=== PATIENT | male | born 1960 | race African-American/Black ===

== ENCOUNTER → 2017-01-21 | Outpatient (CLI) | payer OTHER ==
[~2017-01-21] MED LIST: AMLO5TAB2 PO; AMMO225L5 TP; CYCL10TA2 PO; FERR-26 PO; FLUT9.9S NS; HYDR-2758 PO; HYDR12.53 PO; IBUP-1027 PO; LORA10TA68 PO; LOSA25TA4 PO; NAPR500T4 PO; TRAM50TA PO; TRIA15CR3 TP; ZOLP10TA4 PO
[2017-01-21 09:22] LABS: BASO % 1 % (0-3); EOS % 2 % (0-3); HEMATOCRIT 46.2 % (39.0-53.0); HEMOGLOBIN 15.4 g/dL (13.0-17.5); LYMPH # 1.7 x10^3/uL (1.0-4.8); LYMPH % 32 % (24-48); MEAN CORPUSCULAR HEMOGLOBIN 30 pg (25-35); MEAN CORPUSCULAR HGB CONC 33 g/dL (31-37); MEAN CORPUSCULAR VOLUME 90 fL (79-100); MONO % 8 % (0-9); NEUT % 58 % (31-73); PLATELET COUNT 245 x10^3/uL (140-400); RED BLOOD COUNT 5.15 x10^6/uL (4.30-5.70); RED CELL DISTRIBUTION WIDTH 13.6 % (11.5-14.5); WHITE BLOOD COUNT 5.3 x10^3/uL (4.0-11.0)
[2017-01-21 09:50] LABS: CALCIUM 9.7 mg/dL (8.5-10.1); GFR 93.2; POTASSIUM 4.2 mmol/L (3.5-5.1)
[2017-01-21 10:22] LABS: INR 1.1 (0.8-1.1); PROTHROMBIN TIME PATIENT 13.2 SEC (11.7-14.0)
[2017-01-21 11:18] LABS: BILIRUBIN,URINE NEGATIVE (NEG); GLUCOSE,URINE NEGATIVE (NEG); NITRITE,URINE NEGATIVE (NEG); PROTEIN,URINE NEGATIVE (NEG-TRACE); UROBILINOGEN,URINE 0.2 mg/dL (0.2 mg/dL)
[2017-01-21 11:19] LABS: BACTERIA,URINE 0 /HPF (0-FEW); RBC,URINE 0 /HPF (0-2); WBC,URINE 0 /HPF (0-4)
--- NOTE | 2017-01-21 13:26 | EKG ---
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
--- NOTE | 2017-01-21 13:46 | RAD ---
Indication preop. Anticipated knee replacement. Frontal and lateral views of the chest were obtained. No prior imaging of the chest is available. The level of inspiratory effort is not optimal. There is no consolidated pneumonia. Heart size is normal given the level of inspiratory effort. There is no acute or focal infiltrate seen. Significant pleural fluid is not present. There is no pneumothorax. IMPRESSION: No acute or focal process seen in the chest
== END | disposition home or self-care (01) ==
LOC: SURGPAT 13:23
PROVIDERS: ATTEND Orthopaedic Surgery
DX: Z01.818 Encounter for other preprocedural examination (principal); I10 Essential (primary) hypertension; M17.12 Unilateral primary osteoarthritis, left knee; R94.31 Abnormal electrocardiogram [ECG] [EKG]; Z96.652 Presence of left artificial knee joint
CPT/HCPCS: 36415; 71020; 80048; 81001; 82040; 85025; 85610; 85651; 85730; 87641; 93005